=== PATIENT | male | born 1940 | race Caucasian/White ===

== ENCOUNTER 2025-05-11 22:39 | Inpatient (IN) ==
[2025-05-11] MEDS ORDERED: IOPAMIDOL 100 ML BOTTLE IV ONE (22:40)
[2025-05-11] MEDS: METOCLOPRAMIDE 10 MG/2 ML VIAL IV ONE (23:03)
[2025-05-11] MEDS: 0.9 % SODIUM CHLORIDE 1,000 ML IV ONE (23:03)
[2025-05-11 23:14] LABS: Basophils # (Auto) 0.02 K/mcL (0.00-0.30); Basophils % (Auto) 0.4 % (0.0-2.0); Eosinophils # (Auto) 0 K/mcL (0.00-0.70); Eosinophils % (Auto) 0 % (0.0-7.0); Hematocrit 35.1 % (40.1-51.0); Hemoglobin 11.1 g/dL (13.7-17.5); Lymphocytes # (Auto) 1.25 K/mcL (1.50-4.80); Lymphocytes % (Auto) 25.8 % (15.5-49.0); Mean Corpuscular HGB Conc 31.6 g/dL (31.0-36.0); Monocytes # (Auto) 0.59 K/mcL (0.10-0.90); Monocytes % (Auto) 12.2 % (1.0-12.0); Neutrophils % (Auto) 59.3 % (38.0-78.0); Platelet Count 128 K/mcL (140-440); RBC 3.34 M/mcL (4.63-6.08); WBC 4.9 K/mcL (4.5-11.0)
[2025-05-12 00:46] LABS: Bacteria,Urine 0 /hpf (0); Bilirubin,Urine Negative (Negative); Calcium Oxalate Crystals,Urine Few /hpf; Color,Urine YELLOW; Glucose,Urine (UA) NEGATIVE (Negative); Ketones,Urine 15 mg/dL (Negative); Leukocyte Esterase,Urine NEGATIVE /uL (Negative); Mucus,Urine Few /hpf; PH,Urine 6.0 (5.0-9.0); Protein,Urine NEGATIVE (Negative); Specific Gravity,Urine >= 1.030 (1.000-1.035); Urobilinogen,Urine 0.2 mg/dL
[2025-05-12 00:50] LABS: ALT/SGPT 72 U/L (<40); AST/SGOT 37 U/L (<40); Albumin 4.1 gm/dL (3.2-5.2); Albumin/Globulin Ratio 2.0 (1.0-2.3); Alkaline Phosphatase 497 U/L (39-117); Anion Gap 12.0 (8.0-16.0); Bilirubin,Total 1.1 mg/dL (0.1-1.0); Blood Urea Nitrogen 28 mg/dL (8-23); Calcium 10.1 mg/dL (8.6-10.4); Carbon Dioxide 26 mmol/L (22-30); Chloride 103 mmol/L (96-108); Globulin 2.1 gm/dL (2.2-3.7); Glucose 122 mg/dL (70-105); Potassium 3.5 mmol/L (3.3-5.1); Sodium 141 mmol/L (133-145)
[2025-05-12] MEDS: BENZOCAINE ONE 20% 1 SPRAY TOPICAL (01:07)
[2025-05-12] MEDS ORDERED: ONDANSETRON 4 MG/2 ML VIAL IV PRN ×2 (01:42→15:04)
[2025-05-12] MEDS: 0.9 % SODIUM CHLORIDE 10 ML SYRINGE IV SCH (05:33)
[2025-05-12] MEDS: FAMOTIDINE/PF 20 MG/2 ML VIAL IV SCH (08:37)
[2025-05-12] MEDS: DOCUSATE SODIUM 100 MG CAPSULE PO SCH (11:45)
[2025-05-12] MEDS: 0.9 % SODIUM CHLORIDE 1,000 ML IV SCH ×2 (12:04→16:34)
[2025-05-12] MEDS: cefTRIAXone 2 GM in DEXTROSE 5% IN WATER 50 ML IV ONE (12:36)
[2025-05-12] MEDS ORDERED: FAMOTIDINE/PF 20 MG/2 ML VIAL IV ONE (13:21)
[2025-05-12] MEDS ORDERED: ROPIVACAINE HCL/PF 30 ML VIAL IJ ONE (13:25)
[2025-05-12] MEDS ORDERED: ONDANSETRON 4 MG/2 ML VIAL ONE (13:29)
[2025-05-12] MEDS ORDERED: LIDOCAINE 2% PF 5 ML VIAL ONE (13:29)
[2025-05-12] MEDS ORDERED: MAGNESIUM SULFATE 2 GM/50 ML BAG IV ONE (13:29)
[2025-05-12] MEDS ORDERED: DEXMEDETOMIDINE HCL 200 MCG/2 ML VIAL ONE (13:29)
[2025-05-12] MEDS ORDERED: fentaNYL 100 MCG/2 ML VIAL ONE (13:41)
[2025-05-12] MEDS ORDERED: ROCURONIUM 10 MG/ML ML IV ONE (13:41)
[2025-05-12] MEDS ORDERED: ePHEDrine 50 MG/5 ML SYRINGE (ANEST) IV ONE (14:32)
[2025-05-12] MEDS ORDERED: PHENYLephrine 1 MG/10 ML SYRINGE (ANEST) ONE (14:32)
[2025-05-12] MEDS: VANCOMYCIN 1 GM VIAL TOPICAL SCH (14:45)
[2025-05-12] MEDS: GENTAMICIN SULFATE 800 MG/20 ML VIAL IR ONE (14:45)
[2025-05-12] MEDS ORDERED: IPRATROPIUM/ALBUTEROL 3 ML AMPUL.NEB NEB PRN (15:04)
[2025-05-12] MEDS ORDERED: SUGAMMADEX SODIUM 200 MG/2 ML VIAL IV ONE (15:07)
[2025-05-12] MEDS: LACTATED RINGERS 1,000 ML IV SCH (15:51)
[2025-05-12] MEDS ORDERED: fentaNYL 100 MCG/2 ML VIAL IV PRN (16:06)
[2025-05-12] MEDS: METOCLOPRAMIDE 10 MG/2 ML VIAL IV SCH (17:55)
[2025-05-12] MEDS ORDERED: SENNOSIDES 1 TABLET PO SCH (21:00)
[2025-05-12] MEDS: BUDESONIDE 0.5 MG/2 ML AMPUL.NEB NEB SCH (21:23)
[2025-05-13 06:05] LABS: Basophils # (Auto) 0 K/mcL (0.00-0.30); Basophils % (Auto) 0 % (0.0-2.0); Eosinophils # (Auto) 0 K/mcL (0.00-0.70); Eosinophils % (Auto) 0 % (0.0-7.0); Hematocrit 32.4 % (40.1-51.0); Hemoglobin 9.9 g/dL (13.7-17.5); Lymphocytes # (Auto) 0.52 K/mcL (1.50-4.80); Lymphocytes % (Auto) 14.9 % (15.5-49.0); Mean Corpuscular HGB Conc 30.6 g/dL (31.0-36.0); Monocytes # (Auto) 0.64 K/mcL (0.10-0.90); Monocytes % (Auto) 18.3 % (1.0-12.0); Neutrophils % (Auto) 65.9 % (38.0-78.0); Platelet Count 123 K/mcL (140-440); RBC 2.98 M/mcL (4.63-6.08); WBC 3.5 K/mcL (4.5-11.0)
[2025-05-13 06:42] LABS: ALT/SGPT 51 U/L (<40); AST/SGOT 25 U/L (<40); Albumin 3.5 gm/dL (3.2-5.2); Albumin/Globulin Ratio 1.9 (1.0-2.3); Alkaline Phosphatase 371 U/L (39-117); Anion Gap 10.0 (8.0-16.0); Bilirubin,Total 0.7 mg/dL (0.1-1.0); Blood Urea Nitrogen 30 mg/dL (8-23); Calcium 9.5 mg/dL (8.6-10.4); Carbon Dioxide 25 mmol/L (22-30); Chloride 110 mmol/L (96-108); Globulin 1.8 gm/dL (2.2-3.7); Glucose 138 mg/dL (70-105); Potassium 4.0 mmol/L (3.3-5.1); Sodium 145 mmol/L (133-145)
[2025-05-13] MEDS: cefTRIAXone 2 GM in DEXTROSE 5% IN WATER 50 ML IV SCH (10:11)
[2025-05-14] MEDS ORDERED: MAGNESIUM HYDROXIDE 30 ML ORAL.SUSP PO PRN (16:54)
[2025-05-15 11:28] VITALS: TEMP 97.9; O2SAT 97
== END 2025-05-15 14:10 | disposition home or self-care (01) | DRG 354 ==
LOC: ED 22:39 → MEDSUR 05-12 02:17
PROVIDERS: ADMIT Family Medicine Adult Medicine; ATTEND Family Medicine Adult Medicine